=== PATIENT | male | born 1970 | race Caucasian/White ===

== ENCOUNTER 2017-12-05 12:15 | Outpatient (CLI) | payer BC | END 2017-12-05 12:16 | disposition home or self-care (01) | LOC: BICRAD 12:15 | PROVIDERS: ATTEND Physician Assistant | DX: M25.532 Pain in left wrist (principal) ==

== ENCOUNTER 2018-08-17 08:53 | Day surgery (SDC) | payer BC ==
[2018-08-14 11:31] VITALS: BMI 37.7
[2018-08-17] MEDS ORDERED: Ketorolac Tromethamine 30 MG/ML VIAL ONE (09:41)
[2018-08-17] MEDS ORDERED: Rocuronium Bromide 10 MG/ML (10ML VIAL) ONE (10:51)
[2018-08-17] MEDS ORDERED: PROPOFOL 200 MG/20 ML VIAL ONE (10:51)
[2018-08-17] MEDS ORDERED: Ondansetron PF 4 MG/2 ML Vial ONE (10:51)
[2018-08-17] MEDS ORDERED: Lidocaine 1% PF 5 ML VIAL ONE (10:51)
[2018-08-17] MEDS ORDERED: Glycopyrrolate 0.2 MG/ML 5 ML SYRINGE ONE (10:51)
[2018-08-17] MEDS ORDERED: Fentanyl 100 MCG/2 ML VIAL ONE ×3 (11:48→12:10)
[2018-08-17] MEDS ORDERED: Midazolam HCl 2 mg/2 ml Vial ONE (11:48)
[2018-08-17] MEDS ORDERED: Lidocaine 2% Jelly 5 ML TUBE ONE (11:51)
[2018-08-17] MEDS ORDERED: Bupivacaine/Epinephrine 0.25% 30 ML VIAL ONE (11:51)
[2018-08-17] MEDS ORDERED: Labetalol HCl 100 MG/20 ML VIAL ONE (12:18)
--- NOTE | 2018-08-18 09:26 | PDOC.OP ---
Operative Note - Operative Note Operative Note: PROCEDURE: Excision of left posterior shoulder lipoma SURGEON: Geoff Seals M.D. DATE: 08/17/2018 PREOPERATIVE DIAGNOSIS: Left posterior shoulder lipoma POSTOPERATIVE DIAGNOSIS: Left posterior shoulder lipoma HISTORY: Patient with a history of slowly growing left posterior shoulder lipoma which has become uncomfortable. He wishes to have it removed for symptomatic purposes. Measured 9 cm on preoperative examination so recommendation was made to excise it in the operating room with postoperative drain placement to prevent seroma formation. PROCEDURE IN DETAIL: After informed consent was obtained and appropriate preoperative antibiotics administered the patient was taken to the operating room where he was placed in supine position and general endotracheal anesthesia was administered. He was then moved to the right lateral decubitus position with appropriate support and padding of the extremities. He was prepped and draped in the standard sterile fashion and local anesthesia infused circumferentially. Transverse skin incision was made including some of the redundant skin and dissection carried down to the lipoma which was located deep in the subcutaneous tissues abutting and adherent to the muscle. This was dissected free circumferentially and was found to be lobulated and slightly smaller than anticipated on preoperative exam. The lipoma measured 8 x 7 cm and was oriented with a long lateral suture. The surrounding fatty tissue was normal in appearance. The wound was irrigated and hemostasis verified. A drain was placed and secured to the skin and the subcutaneous tissues reapproximated with interrupted 3-0 Vicryl suture. The skin was then closed with a running subcuticular Monocryl suture with excellent technical result. Dermabond dressings were placed and the drain was placed to suction. Estimated blood loss minimal. There were no complications. There were no specimens.
== END 2018-08-17 14:50 | disposition home or self-care (01) ==
LOC: SDC 08:53
PROVIDERS: ATTEND Surgery
PROC: 0JBF0ZZ Excision of Left Upper Arm Subcutaneous Tissue and Fascia, Open Approach (ICD-10-PCS; principal; 2018-08-17)
DX: D17.22 Benign lipomatous neoplasm of skin and subcutaneous tissue of left arm (principal); E11.9 Type 2 diabetes mellitus without complications; F32.9 Major depressive disorder, single episode, unspecified; I10 Essential (primary) hypertension; E78.00 Pure hypercholesterolemia, unspecified; Z79.4 Long term (current) use of insulin; Z79.82 Long term (current) use of aspirin; Z79.899 Other long term (current) drug therapy
CPT/HCPCS: 36416; 88304; J0131; J1885; J2001; J2250; J2405; J2704; J3010

== ENCOUNTER 2020-06-26 12:21 | Outpatient (CLI) | payer BC | END 2020-06-26 12:22 | disposition home or self-care (01) | LOC: TBSIIMAG 12:21 | PROVIDERS: ATTEND Orthopaedic Surgery | DX: M19.012 Primary osteoarthritis, left shoulder (principal); R60.0 Localized edema; M75.92 Shoulder lesion, unspecified, left shoulder; S43.432A Superior glenoid labrum lesion of left shoulder, initial encounter; M75.102 Unspecified rotator cuff tear or rupture of left shoulder, not specified as traumatic; M25.812 Other specified joint disorders, left shoulder ==

== ENCOUNTER 2021-07-08 16:14 | Outpatient (CLI) | payer BC ==
[2021-07-09 08:33] LABS: SARS-CoV-2 PCR by NAA Not Detected (NotDetected)
== END 2021-07-08 16:15 | disposition home or self-care (01) ==
LOC: LABBT 16:14
PROVIDERS: ATTEND Thoracic Surgery (Cardiothoracic Vascular Surgery)
DX: Z01.812 Encounter for preprocedural laboratory examination (principal); I25.10 Atherosclerotic heart disease of native coronary artery without angina pectoris; Z20.822 Contact with and (suspected) exposure to COVID-19
CPT/HCPCS: U0003; U0005

== ENCOUNTER 2021-07-08 16:15 | Inpatient (IN) | payer BC ==
[2021-07-08 17:33] LABS: Mean Corpuscular HGB CONC 34.6 g/dL (32.0-36.0); Mean Corpuscular Hemoglobin 30.6 pg (27.0-33.0); Mean Corpuscular Volume 88.4 fl (81.2-95.1); Mean Platelet Volume 11.6 fl (7.4-10.4); Platelet Count 207 10x3/uL (150-450); RBC Distribution Width 13.2 % (11.5-14.5); White Blood Cell (WBC) Count 6.5 10x3/uL (3.5-10.5)
[2021-07-08 17:54] LABS: Anion Gap 15 mmol/L (10-20); BUN (Urea Nitrogen) 13 mg/dL (8.4-25.7); Calc. Creatinine Clearance 0 mL/min (70-130); Calcium 9.1 mg/dL (7.8-10.44); Carbon Dioxide 26 mmol/L (22-29); Chloride 101 mmol/L (98-107); Glucose 306 mg/dL (70-105); Potassium 3.8 mmol/L (3.5-5.1); Sodium 138 mmol/L (136-145)
[2021-07-13] MEDS ORDERED: Lidocaine 1% MPF 2 ML VIAL ONE (06:22)
[2021-07-13] MEDS ORDERED: Albumin 5% 500 ML ONE (06:26)
[2021-07-13] MEDS ORDERED: Fentanyl 250 MCG/5 ML VIAL ONE (06:42)
[2021-07-13] MEDS ORDERED: Midazolam HCl 5 mg/5 ml Vial ONE (06:43)
[2021-07-13] MEDS ORDERED: Dexmedetomidine 200 MCG/2 ML VIAL ONE (06:43)
[2021-07-13] MEDS ORDERED: Heparin 10,000 UNITS/1 ML VIAL 30,000 UNITS in Sodium Chloride 0.9% 1,000 ML FS SCH (06:45)
[2021-07-13] MEDS ORDERED: Ondansetron ODT 4 MG TAB ONE (07:06)
[2021-07-13] MEDS ORDERED: Midazolam HCl 2 mg/2 ml Vial ONE (07:06)
[2021-07-13] MEDS ORDERED: ceFAZolin Sodium (SDC) 2 GM/100 ML BAG ONE (07:15)
[2021-07-13] MEDS ORDERED: Potassium Chloride 60 MEQ/30 ML VIAL ONE (07:17)
[2021-07-13] MEDS ORDERED: Lidocaine 2% PF 100 mg/5 ml Syringe ONE (07:17)
[2021-07-13] MEDS ORDERED: Heparin 5,000 UNITS/ML VIAL ONE (07:17)
[2021-07-13] MEDS ORDERED: Lidocaine 1% PF 5 ML VIAL ONE (07:17)
[2021-07-13] MEDS ORDERED: Norepinephrine 4 MG/4 ML VIAL ONE (07:17)
[2021-07-13] MEDS ORDERED: Heparin 30,000 units/30 ml VIAL ONE (07:17)
[2021-07-13] MEDS ORDERED: Cardioplegic Soln 1,000 ML BAG ONE (07:17)
[2021-07-13] MEDS ORDERED: Protamine Sulfate 50 MG/5 ML VIAL ONE (07:17)
[2021-07-13] MEDS ORDERED: Succinylcholine 200 MG/10 ml SYRINGE FS ONE (07:17)
[2021-07-13] MEDS ORDERED: Papaverine 60 MG/2 ML VIAL ONE (07:17)
[2021-07-13] MEDS ORDERED: Mannitol 12.5 GM/50 ML ONE (07:17)
[2021-07-13] MEDS ORDERED: Calcium Chloride 1 GM/10 ML Abboject SYRINGE ONE (07:17)
[2021-07-13] MEDS ORDERED: Ondansetron PF 4 MG/2 ML Vial ONE (07:17)
[2021-07-13] MEDS ORDERED: Nitroglycerin 50 MG/250 ML BOT ONE (07:17)
[2021-07-13] MEDS ORDERED: Vecuronium 10 MG VIAL ONE (07:17)
[2021-07-13] MEDS ORDERED: Thrombin 5000 UNITS/5 ML VIAL ONE (07:17)
[2021-07-13] MEDS ORDERED: Aminocaproic Acid 5 GM/20 ML VIAL ONE (07:17)
[2021-07-13] MEDS ORDERED: PROPOFOL 200 MG/20 ML VIAL ONE (07:17)
[2021-07-13] MEDS ORDERED: Labetalol HCl 100 MG/20 ML VIAL ONE (07:17)
[2021-07-13] MEDS ORDERED: Dexamethasone 20 MG/5 ML VIAL ONE (07:17)
[2021-07-13] MEDS ORDERED: Sodium Bicarb 50 MEQ/50 ML Abboject 8.4% SYRINGE ONE (07:17)
[2021-07-13] MEDS ORDERED: Magnesium Sulfate 1 GM/2 ML VIAL ONE (07:17)
[2021-07-13] MEDS ORDERED: Insulin Regular 300 UNITS/3 ML VIAL ONE (08:11)
[2021-07-13 10:04] LABS: Actual Bicarbonate (HCO3v) 24 mEq/L (22-28); Base Excess -4.1 mEq/L (-2.0 to +3.0); Calcium, Ionized (venous) 1.02 mmol/L (1.16-1.32); Chloride (VBG) 105 mmol/L (98-106); Hemoglobin (Hb) 12.6 g/dL (13.1-17.2); Potassium (VBG) 3.72 mmol/L (3.70-5.30); pH (venous) 7.25 (7.32-7.43)
[2021-07-13 10:06] LABS: Actual Bicarbonate (HCO3a) 20.6 mEq/L (22-28); Base Excess (BEa) -5.6 mEq/L (-2.0 to +3.0); CO2 Tension 43.3 mmHg (35.0-45.0); Calcium, Ionized (arterial) 1.03 mmol/L (1.12-1.30); Carboxyhemoglobin (COHb) 0.6 gm% (0.0-3.0); Hemoglobin (Hb) 12.6 g/dL (14.0-18.0); O2 Tension (PaO2), arterial 273.6 mmHg (80.0-100.0); Potassium - ABG Lab 3.72 mmol/L (3.70-5.30)
[2021-07-13 11:07] LABS: Puncture Site Arterial Line
[2021-07-13] MEDS: Morphine 4 MG/ML VIAL SLOW IVP PRN ×2 (12:10→15:19)
[2021-07-13] MEDS ORDERED: HUMULIN R 100 UNITS in Sodium Chloride 0.9% 100 ML IVPB SCH ×2 (12:15→13:15)
[2021-07-13 12:22] LABS: Actual Bicarbonate (HCO3a) 20.9 mEq/L (22-28); Base Excess (BEa) -5.6 mEq/L (-2.0 to +3.0); CO2 Tension 44.8 mmHg (35.0-45.0); Calcium, Ionized (arterial) 1.06 mmol/L (1.12-1.30); Carboxyhemoglobin (COHb) 0.9 gm% (0.0-3.0); Hemoglobin (Hb) 12.4 g/dL (14.0-18.0); O2 Tension (PaO2), arterial 94.8 mmHg (80.0-100.0); Potassium - ABG Lab 3.54 mmol/L (3.70-5.30); pH, Arterial 7.29 (7.35-7.45)
[2021-07-13 12:23] LABS: Puncture Site Arterial Line
[2021-07-13] MEDS ORDERED: niCARdipine 25 MG in Sodium Chloride 0.9% 250 ML 250 ML IVPB PRN (12:27)
[2021-07-13] MEDS ORDERED: Guaifenesin DM 100-10/5 ML UDCUP PO PRN (12:27)
[2021-07-13] MEDS ORDERED: Hetastarch 6% 500 ML 500 ML IVPB PRN (12:27)
[2021-07-13] MEDS ORDERED: Promethazine HCl 25 MG/ML VIAL IM PRN (12:27)
[2021-07-13] MEDS ORDERED: Potassium Chloride 20 MEQ/100 ML PREMIX BAG IVPB PRN (12:27)
[2021-07-13] MEDS ORDERED: Bisacodyl 10 MG SUPP PR PRN (12:27)
[2021-07-13] MEDS ORDERED: Ondansetron PF 4 MG/2 ML Vial IVP PRN (12:27)
[2021-07-13] MEDS ORDERED: Mag-Al 1200 mg/1200 mg/30 ML UDCUP PO PRN (12:27)
[2021-07-13] MEDS ORDERED: hydrALAZINE 20 MG/ML VIAL SLOW IVP PRN (12:27)
[2021-07-13] MEDS ORDERED: Fentanyl 100 MCG/2 ML VIAL SLOW IVP PRN ×2 (12:27)
[2021-07-13] MEDS ORDERED: Norepinephrine 8 MG/0.9% NS 250 ML IVPB PRN (12:27)
[2021-07-13] MEDS ORDERED: Nitroglycerin 50 MG/250 ML BOT 250 ML IVPB PRN (12:27)
[2021-07-13] MEDS ORDERED: Bisacodyl 5 MG TAB PO PRN (12:27)
[2021-07-13] MEDS ORDERED: DOPamine 400 MG/D5W 250 ML 250 ML IVPB PRN (12:27)
[2021-07-13] MEDS ORDERED: Acetaminophen 325 MG TAB PO PRN (12:27)
[2021-07-13] MEDS ORDERED: Post-Op Insulin Drip Protocol IVPB ONE (12:27)
[2021-07-13 12:35] VITALS: BMI 36.8
[2021-07-13 12:36] LABS: #Eosinphils 0.1 thou/uL (0.0-0.7); #Lymphocytes 1.8 thou/uL (1.20-3.40); #Monocytes 0.4 thou/uL (0.11-0.59); %Eosinophils 0.3 % (0.0-10.0); %Lymphocytes 11.8 % (21.0-51.0); %Monocytes 2.5 % (0.0-10.0); %Neutrophils 85.3 % (42.0-75.0); Hemoglobin 11.9 g/dL (14.0-18.0); Mean Corpuscular HGB CONC 33.6 g/dL (32.0-36.0); Mean Corpuscular Hemoglobin 31.3 pg (27.0-31.0); Mean Corpuscular Volume 93.2 fL (78.0-98.0); Mean Platelet Volume 9.1 fL (7.4-10.4); Platelet Count 196 thou/uL (130-400); RBC Distribution Width 12.6 % (11.5-14.5); White Blood Cell (WBC) Count 15.2 thou/uL (4.8-10.8)
[2021-07-13 12:50] LABS: INR-International Normal Ratio 1.2
[2021-07-13 12:51] LABS: PTT 27.9 sec (22.9-36.1)
[2021-07-13] MEDS: Morphine 4 MG/ML VIAL ONE ×2 (12:59→13:17)
[2021-07-13 13:00] LABS: Anion Gap 7 mmol/L (10-20); BUN (Urea Nitrogen) 21 mg/dL (8.4-25.7); Calc. Creatinine Clearance 173 mL/min (70-130); Calcium 7.3 mg/dL (7.8-10.44); Carbon Dioxide 27 mmol/L (22-29); Chloride 113 mmol/L (98-107); Glucose 156 mg/dL (70-105); Potassium 3.7 mmol/L (3.5-5.1); Sodium 143 mmol/L (136-145)
[2021-07-13] MEDS ORDERED: Ketorolac Tromethamine 30 MG/ML VIAL ONE (13:06)
[2021-07-13] MEDS: Lactated Ringer's 1,000 ML IV SCH (13:12)
[2021-07-13] MEDS: Ketorolac Tromethamine 30 MG/ML VIAL IVP SCH ×2 (13:12→17:14)
[2021-07-13] MEDS ORDERED: Insulin Regular 300 UNITS/3 ML VIAL SC PRN (13:15)
[2021-07-13] MEDS ORDERED: Dextrose 50% Abboject 50 ML SYRINGE SLOW IVP PRN (13:15)
[2021-07-13] MEDS ORDERED: Lantus 1000 UNITS/10 ML VIAL SC PRN (13:15)
[2021-07-13] MEDS ORDERED: Dextrose 5% in Water 1,000 ML IV PRN (13:15)
[2021-07-13 14:33] LABS: Actual Bicarbonate (HCO3a) 21.7 mEq/L (22-28); Base Excess (BEa) -3.2 mEq/L (-2.0 to +3.0); CO2 Tension 38.5 mmHg (35.0-45.0); Calcium, Ionized (arterial) 1.06 mmol/L (1.12-1.30); Carboxyhemoglobin (COHb) 0.9 gm% (0.0-3.0); Hemoglobin (Hb) 12.9 g/dL (14.0-18.0); O2 Tension (PaO2), arterial 75.6 mmHg (80.0-100.0); Potassium - ABG Lab 3.78 mmol/L (3.70-5.30); pH, Arterial 7.37 (7.35-7.45)
[2021-07-13 14:43] LABS: ALV-art Gradient 161.475 mmHg (0-20); Puncture Site Arterial Line
[2021-07-13] MEDS: CEFAZOLIN 2 GM, IV Admixture Fee-Chemo 1 UNITS in Sodium Chloride 0.9% 100 ML IVPB SCH ×2 (15:54→23:06)
[2021-07-13] MEDS: HYDROcodone/Acetaminophen 5/325 mg Tablet PO PRN ×2 (16:53→20:32)
[2021-07-13] MEDS ORDERED: FLU VACC QS2021-22(6MOS UP)/PF 60 MCG/0.5 ML SYRINGE IM ONE (18:00)
[2021-07-13 18:23] LABS: Hemoglobin 12.7 g/dL (14.0-18.0)
[2021-07-13 18:36] LABS: Potassium 3.8 mmol/L (3.5-5.1)
[2021-07-13] MEDS: Famotidine/PF 20 mg/2ml Vial SLOW IVP SCH (20:34)
[2021-07-14] MEDS: Ketorolac Tromethamine 30 MG/ML VIAL IVP SCH ×4 (00:14→20:42)
[2021-07-14] MEDS: HYDROcodone/Acetaminophen 5/325 mg Tablet PO PRN ×5 (01:35→19:16)
[2021-07-14] MEDS: Lactated Ringer's 1,000 ML IV SCH (01:42)
[2021-07-14 05:45] LABS: #Basophils 0.1 thou/uL (0.0-0.2); #Lymphocytes 1.1 thou/uL (1.20-3.40); #Monocytes 0.7 thou/uL (0.11-0.59); #Neutrophils 8.7 thou/uL (1.40-6.50); %Basophils 0.5 % (0.0-1.0); %Eosinophils 0.1 % (0.0-10.0); %Lymphocytes 10.7 % (21.0-51.0); %Monocytes 6.6 % (0.0-10.0); %Neutrophils 82.1 % (42.0-75.0); Hemoglobin 11.1 g/dL (14.0-18.0); Mean Corpuscular HGB CONC 33.8 g/dL (32.0-36.0); Mean Corpuscular Hemoglobin 32.1 pg (27.0-31.0); Mean Corpuscular Volume 95.1 fL (78.0-98.0); Mean Platelet Volume 9.7 fL (7.4-10.4); Platelet Count 166 thou/uL (130-400); Red Blood Cell (RBC) Count 3.46 mill/uL (4.70-6.10); White Blood Cell (WBC) Count 10.6 thou/uL (4.8-10.8)
[2021-07-14 06:07] LABS: Anion Gap 13 mmol/L (10-20); BUN (Urea Nitrogen) 16 mg/dL (8.4-25.7); Calc. Creatinine Clearance 194 mL/min (70-130); Calcium 7.8 mg/dL (7.8-10.44); Carbon Dioxide 23 mmol/L (22-29); Chloride 109 mmol/L (98-107); Glucose 112 mg/dL (70-105); Potassium 3.7 mmol/L (3.5-5.1); Sodium 141 mmol/L (136-145)
[2021-07-14] MEDS: CEFAZOLIN 2 GM, IV Admixture Fee-Chemo 1 UNITS in Sodium Chloride 0.9% 100 ML IVPB SCH (07:41)
[2021-07-14] MEDS: Aspirin 325 MG TAB PO SCH (08:16)
[2021-07-14] MEDS: Famotidine/PF 20 mg/2ml Vial SLOW IVP SCH (08:16)
[2021-07-14] MEDS ORDERED: Metoprolol Tartrate 25 MG TAB PO SCH ×2 (09:00→21:00)
[2021-07-14] MEDS ORDERED: ALPRAZolam 0.5 MG TAB PO PRN (10:44)
[2021-07-14] MEDS ORDERED: Nitroglycerin 0.4 MG TAB (25 Tab Bottle) SL PRN (10:44)
[2021-07-14] MEDS ORDERED: Mineral Oil ENEMA PR PRN (10:44)
[2021-07-14] MEDS: Insulin Regular 300 UNITS/3 ML VIAL SC PRN ×3 (11:36→20:44)
[2021-07-14] MEDS: Famotidine 20 MG TAB PO SCH (20:43)
[2021-07-14] MEDS: Glimepiride 4 MG TAB PO SCH (20:43)
[2021-07-14] MEDS: Atorvastatin Calcium 40 MG TAB PO SCH (20:43)
[2021-07-14] MEDS: Gabapentin 300 MG CAP PO SCH (20:43)
[2021-07-14] MEDS: Lantus 1000 UNITS/10 ML VIAL SC SCH (20:44)
[2021-07-15] MEDS: Ketorolac Tromethamine 30 MG/ML VIAL IVP SCH ×4 (00:24→18:06)
[2021-07-15 05:23] LABS: #Eosinphils 0.1 thou/uL (0.0-0.7); #Lymphocytes 1.6 thou/uL (1.20-3.40); #Monocytes 0.7 thou/uL (0.11-0.59); #Neutrophils 6.4 thou/uL (1.40-6.50); %Basophils 0.2 % (0.0-1.0); %Eosinophils 0.7 % (0.0-10.0); %Lymphocytes 18.3 % (21.0-51.0); %Monocytes 8.3 % (0.0-10.0); %Neutrophils 72.6 % (42.0-75.0); Hemoglobin 10.8 g/dL (14.0-18.0); Mean Corpuscular Hemoglobin 31.6 pg (27.0-31.0); Mean Corpuscular Volume 95.5 fL (78.0-98.0); Mean Platelet Volume 9.2 fL (7.4-10.4); Platelet Count 154 thou/uL (130-400); Red Blood Cell (RBC) Count 3.44 mill/uL (4.70-6.10); White Blood Cell (WBC) Count 8.8 thou/uL (4.8-10.8)
[2021-07-15 05:47] LABS: Anion Gap 12 mmol/L (10-20); BUN (Urea Nitrogen) 19 mg/dL (8.4-25.7); Calc. Creatinine Clearance 185 mL/min (70-130); Calcium 8.5 mg/dL (7.8-10.44); Carbon Dioxide 24 mmol/L (22-29); Chloride 107 mmol/L (98-107); Glucose 211 mg/dL (70-105); Potassium 3.7 mmol/L (3.5-5.1); Sodium 139 mmol/L (136-145)
[2021-07-15] MEDS: HYDROcodone/Acetaminophen 5/325 mg Tablet PO PRN ×4 (06:08→20:04)
[2021-07-15] MEDS: Insulin Regular 300 UNITS/3 ML VIAL SC PRN ×4 (06:09→21:16)
[2021-07-15] MEDS: Gabapentin 300 MG CAP PO SCH ×2 (08:31→20:03)
[2021-07-15] MEDS: metFORMIN 500 MG TAB PO SCH ×2 (08:31→16:04)
[2021-07-15] MEDS: Bupropion 150 MG XL TAB PO SCH (08:31)
[2021-07-15] MEDS: FLUoxetine HCl 20 MG CAP PO SCH (08:31)
[2021-07-15] MEDS: Aspirin 325 MG TAB PO SCH (08:31)
[2021-07-15] MEDS: Potassium Chloride 10 MEQ TAB PO SCH (08:31)
[2021-07-15] MEDS: Metoprolol Tartrate 50 MG TAB PO SCH ×2 (08:32→21:17)
[2021-07-15] MEDS: Famotidine 20 MG TAB PO SCH ×2 (08:32→20:03)
[2021-07-15] MEDS: Furosemide 40 MG TAB PO SCH (08:32)
[2021-07-15] MEDS: Polyethylene Glycol 3350 17 GM Packet PO SCH (08:34)
[2021-07-15] MEDS ORDERED: Lisinopril 2.5 MG TAB PO SCH (09:00)
[2021-07-15] MEDS ORDERED: Lantus 1000 UNITS/10 ML VIAL SC SCH (09:00)
[2021-07-15] MEDS: Atorvastatin Calcium 40 MG TAB PO SCH (20:03)
[2021-07-15] MEDS: Glimepiride 4 MG TAB PO SCH (20:04)
[2021-07-15] MEDS: Lantus 1000 UNITS/10 ML VIAL SC SCH (21:17)
[2021-07-16] MEDS: Ketorolac Tromethamine 30 MG/ML VIAL IVP SCH ×3 (01:20→12:16)
[2021-07-16] MEDS ORDERED: Lantus 1000 UNITS/10 ML VIAL SC SCH (06:19)
[2021-07-16] MEDS ORDERED: Lisinopril 5 MG TAB PO SCH (09:00)
[2021-07-16] MEDS: Aspirin 325 MG TAB PO SCH (09:45)
[2021-07-16] MEDS: Gabapentin 300 MG CAP PO SCH ×2 (09:45→21:14)
[2021-07-16] MEDS: Bupropion 150 MG XL TAB PO SCH (09:46)
[2021-07-16] MEDS: Metoprolol Tartrate 50 MG TAB PO SCH ×2 (09:47→21:15)
[2021-07-16] MEDS: Furosemide 40 MG TAB PO SCH (09:47)
[2021-07-16] MEDS: Famotidine 20 MG TAB PO SCH ×2 (09:47→21:16)
[2021-07-16] MEDS: metFORMIN 500 MG TAB PO SCH ×2 (09:47→18:15)
[2021-07-16] MEDS: FLUoxetine HCl 20 MG CAP PO SCH (09:47)
[2021-07-16] MEDS: Potassium Chloride 10 MEQ TAB PO SCH (09:47)
[2021-07-16] MEDS: Lantus 1000 UNITS/10 ML VIAL SC SCH (09:48)
[2021-07-16] MEDS: Polyethylene Glycol 3350 17 GM Packet PO SCH (09:49)
[2021-07-16] MEDS: HYDROcodone/Acetaminophen 5/325 mg Tablet PO PRN ×2 (09:56→21:17)
[2021-07-16] MEDS: Insulin Regular 300 UNITS/3 ML VIAL SC PRN ×3 (12:11→21:18)
[2021-07-16] MEDS ORDERED: Lisinopril 10 MG TAB PO SCH (21:00)
[2021-07-16] MEDS: Glimepiride 4 MG TAB PO SCH (21:13)
[2021-07-16] MEDS: Atorvastatin Calcium 40 MG TAB PO SCH (21:16)
[2021-07-17] MEDS ORDERED: Lisinopril 10 MG TAB PO SCH (08:03)
[2021-07-17] MEDS: HYDROcodone/Acetaminophen 5/325 mg Tablet PO PRN (08:42)
[2021-07-17] MEDS: Bupropion 150 MG XL TAB PO SCH (08:44)
[2021-07-17] MEDS: Aspirin 325 MG TAB PO SCH (08:44)
[2021-07-17] MEDS: Gabapentin 300 MG CAP PO SCH (08:44)
[2021-07-17] MEDS: Famotidine 20 MG TAB PO SCH (08:45)
[2021-07-17] MEDS: Furosemide 40 MG TAB PO SCH (08:45)
[2021-07-17] MEDS: Metoprolol Tartrate 50 MG TAB PO SCH (08:45)
[2021-07-17] MEDS: FLUoxetine HCl 20 MG CAP PO SCH (08:46)
[2021-07-17] MEDS: Potassium Chloride 10 MEQ TAB PO SCH (08:46)
[2021-07-17] MEDS: Polyethylene Glycol 3350 17 GM Packet PO SCH ×2 (08:47→08:50)
[2021-07-17] MEDS ORDERED: Icosapent Ethyl 1 GM CAPSULE PO SCH (09:00)
[2021-07-17] MEDS ORDERED: Lisinopril 20 MG TAB PO SCH (09:00)
[2021-07-17] MEDS: metFORMIN 500 MG TAB PO SCH (09:35)
[2021-07-17] MEDS: Lantus 1000 UNITS/10 ML VIAL SC SCH (09:35)
[2021-07-17] MEDS: Insulin Regular 300 UNITS/3 ML VIAL SC PRN (11:25)
[2021-07-17 11:55] VITALS: TEMP 97.6
[2021-07-17 12:11] VITALS: BP 136/84
== END 2021-07-17 14:00 | disposition home or self-care (01) | DRG 236 ==
LOC: SURG A 07-13 06:14 → CCU 07-13 12:01 → 2NO 07-14 17:06
PROVIDERS: ADMIT Thoracic Surgery (Cardiothoracic Vascular Surgery); ATTEND Thoracic Surgery (Cardiothoracic Vascular Surgery)
PROC: 021009W Bypass Coronary Artery, One Artery from Aorta with Autologous Venous Tissue, Open Approach (ICD-10-PCS; principal; 2021-07-13)
PROC: 02100Z9 Bypass Coronary Artery, One Artery from Left Internal Mammary, Open Approach (ICD-10-PCS; 2021-07-13)
PROC: 02100AW Bypass Coronary Artery, One Artery from Aorta with Autologous Arterial Tissue, Open Approach (ICD-10-PCS; 2021-07-13)
PROC: 06BQ0ZZ Excision of Left Saphenous Vein, Open Approach (ICD-10-PCS; 2021-07-13)
PROC: 03BC0ZZ Excision of Left Radial Artery, Open Approach (ICD-10-PCS; 2021-07-13)
PROC: 5A1221Z Performance of Cardiac Output, Continuous (ICD-10-PCS; 2021-07-13)
PROC: 02L70CK Occlusion of Left Atrial Appendage with Extraluminal Device, Open Approach (ICD-10-PCS; 2021-07-13)
DX: I25.10 Atherosclerotic heart disease of native coronary artery without angina pectoris (principal); Z20.822 Contact with and (suspected) exposure to COVID-19; F41.9 Anxiety disorder, unspecified; I10 Essential (primary) hypertension; E78.5 Hyperlipidemia, unspecified; E78.1 Pure hyperglyceridemia; M19.90 Unspecified osteoarthritis, unspecified site; E66.01 Morbid (severe) obesity due to excess calories; F32.A Depression, unspecified; E11.65 Type 2 diabetes mellitus with hyperglycemia; R00.0 Tachycardia, unspecified; Z98.890 Other specified postprocedural states; Z79.899 Other long term (current) drug therapy; Z79.84 Long term (current) use of oral hypoglycemic drugs; Z79.82 Long term (current) use of aspirin; Z79.4 Long term (current) use of insulin; Z90.49 Acquired absence of other specified parts of digestive tract; Z83.3 Family history of diabetes mellitus; Z82.49 Family history of ischemic heart disease and other diseases of the circulatory system; Z80.9 Family history of malignant neoplasm, unspecified; Z87.891 Personal history of nicotine dependence; Z68.37 Body mass index [BMI] 37.0-37.9, adult; Z79.890 Hormone replacement therapy; Z83.6 Family history of other diseases of the respiratory system; Z84.1 Family history of disorders of kidney and ureter; Z86.018 Personal history of other benign neoplasm
CPT/HCPCS: 36415; 36416; 71045; 80048; 82805; 85025; 85027; 85610; 85730; 86850; 86900; 86901; 93005; 93010; 93798; 94002; C1713; C1776; J0360; J0690; J1100; J1642; J1644; J1815; J1885; J2001; J2150; J2250; J2270; J2405; J2440; J2704; J2720; J3010; J3370; J3475; J3480; J3490; J7120; P9045; Q0162; S0017; S0028